=== PATIENT | male | born 1960 | race Caucasian/White ===

== ENCOUNTER → 2022-01-02 | Outpatient (CLI) | payer OTHER | LOC: EXRD 11:08 | DX: R06.02 Shortness of breath (principal); M25.561 Pain in right knee; M25.562 Pain in left knee | CPT/HCPCS: 71046; 73560 ==

== ENCOUNTER → 2022-02-05 | Outpatient (CLI) | payer OTHER | LOC: ECHO 01-27 09:00 → NM 01-27 10:00 → ECHO 08:30 | DX: R06.02 Shortness of breath (principal); R07.9 Chest pain, unspecified; R68.89 Other general symptoms and signs; I08.1 Rheumatic disorders of both mitral and tricuspid valves | CPT/HCPCS: ECHO; 78452; 93017; 93306; A9502 ==